=== PATIENT | female | born 1940 | race Caucasian/White ===

== ENCOUNTER → 2016-11-10 | Outpatient (CLI) | payer MEDICARE, MEDICAID ==
[~2016-11-10] MED LIST: ASPIRIN 325MG325 MG PO; BISOPROLOL 5MG T5 MG PO; CEFTIN500 MG PO; CLONIDINE HYDR0.1 MG PO; Docusate Sodiu100 MG PO; FERROUS SULFATE65 MG PO; LISINOPRIL2.5 MG NG; PLAVIX75 MG PO; PROAIR HFA0.09 MG/AC IH; VITAMIN C500 M4 PO; ZOCOR80 MG PO
--- NOTE | 2016-11-16 15:19 | RADIOLOGY REPORT PS360 ---
EXAM: CT LUNG LOW DOSE WO CONTRAST TECHNIQUE: The exam was performed on a GE Light Speed [address] scanner using 3.0 mGy CTDI. A low dose helical CT CHEST was performed on a multi-detector scanner The LDCT was performed in a facility that meets the criteria for the screening program. Data regarding this exam was submitted to ACR which is an approved registry. The order for this exam indicates that it came as a result of a lung cancer screening counseling shard decision-making visit that included all the elements required of such a visit including smoking cessation. The radiologist interpreting this exam meets the CMS criteria for the LDCT lung cancer screening program. The exam is reported using the Lung-RADS classification scale and reported to the ACR registry. NOTE: This study was performed for the specific purposes of lung cancer screening and is not an alternative to diagnostic chest CT. RADIATION DOSE: CTDI vol(CT dose Index-volume) = 111.9mGy DLP (Dose Length Product) = 2.94 mGy-cm COMPARISON: Previous CT chest screening 04/25/2016 HISTORY: Smoker 1-2 pack per day for 45 years = approaching 70 year pack hx Lung nodule follow-up prior April [address] . FINDINGS: No suspicious lung nodules no suspicious intrathoracic findings. COPD. Hyperexpansion. Indeterminate/Non-actionable Nodules(Category2): . Again the tiny 3 mm superior segment at posterior right lower lobe nodule is identified, it has not changed appreciably in seen. On axial image 36. Measures up to 3 mm size barely evident. Unchanged. . Given this is less than 4 mm size and stable Follow-up in one year adequate for this this feature be.. No additional new lung nodule or lung findings LUNG PARENCHYMA Emphysema: Mild centrilobular emphysematous changes again noted Airways disease: Upper normal thickness central airways.. Fibrosis: No significant interstitial fibrosis OTHER ANATOMIC REGIONS Lymph Nodes: No enlarged lymph nodes evident. Scattered small nodes are present in the mediastinum and zachariah Pleura: Unremarkable Cardiac: Unremarkable OTHER FINDINGS:.. The patient had a recent breast biopsy with bleeding at the biopsy site at the large hematoma at the medial left breast remains evident measured 3.5 cm. The small metallic MicroMark or from the biopsy procedure which revealed a cancer at the medial breast, is evident. Although it can be tolerated for localization this may be difficult. Understand patient is requested to a mastectomyI however if localization is requested CT back to be the better technique for such given theLarge hematoma rather than standard mammogram breast needle localization technique. ' IMPRESSION 1. Lung RADS Category: 2 Stable tiny 3 mm nodule at posterior right lower lobe superior segment. Follow-up one year adequate for this feature 2. Other findings:* Large 3.5 cm hematoma associated with the recent breast biopsy medial left breast evident The tiny metallic marker placed at biopsy site centrally within this region noted. If localization of this prior breast biopsy site requested, CT may be a more feasible option than mammography due to the large hematoma 3. COPD. Mild emphysematous changes. RECOMMENDATIONS: 12 monthd LDCT follow-up for the lung cancer screening follow-up
== END ==
LOC: RAD 12:38
DX: R91.1 Solitary pulmonary nodule (principal); Z87.891 Personal history of nicotine dependence; Z12.2 Encounter for screening for malignant neoplasm of respiratory organs
CPT/HCPCS: G0297

== ENCOUNTER → 2016-11-16 | Outpatient (CLI) | payer MEDICARE, MEDICAID ==
[~2016-11-16] MED LIST changes: +NORCO 325 MG-51 TAB PO
[2016-11-16 16:19] LABS: LYMPH # 2.1 K/mm3 (0.7-4.5); LYMPH % 27.5 % (10-50.0)
[2016-11-16 16:24] LABS: HEMOGLOBIN 14.6 g/dL (12.2-16.2)
[2016-11-16 18:50] LABS: BUN 14 mg/dL (7-18)
[2016-11-16 18:55] LABS: GFR (ESTIMATED) 61 ML/MIN (59-)
== END ==
LOC: RT 16:07 → LAB 16:07
PROVIDERS: Surgery
DX: C50.912 Malignant neoplasm of unspecified site of left female breast (principal); Z01.810 Encounter for preprocedural cardiovascular examination; Z01.811 Encounter for preprocedural respiratory examination; Z01.812 Encounter for preprocedural laboratory examination

== ENCOUNTER 2016-11-22 11:02 | Observation (INO) | payer MEDICARE, MEDICAID ==
[2016-11-22] VITALS (13 sets, daily range): BP systolic 109–148; BP diastolic 52–81
[~2016-11-22] VITALS: Ht 154.9 cm; Wt 69.9 kg
[~2016-11-22 11:02] MED LIST changes: -NORCO 325 MG-51 TAB PO
--- NOTE | 2016-11-22 15:39 | Operative Note ---
Surgeon/Diagnoses Surgeon/Detective Bureau Chief(s) Date of procedure: 11/22/16 Surgeon: MD Jak Ruiz Detective Bureau Chief(s): Lydia Kendrick Diagnoses Pre-op diagnosis: LEFT breast cancer Post-op diagnosis Same Procedure Procedure Procedure: LEFT mastectomy with LEFT axillary sentinel lymph node biopsy Indications: ADELSO BARLOW is a 76 year-old Female with a history of biopsy-proven LEFT breast cancer. After a long discussion with patient concerning the risks and benefits of all alternative interventions, she chose to proceed with mastectomy. She stated that she wanted her "entire breast removed no matter what". Findings: Target counts on sentinel node as notated in specimens. Once sentinel nodes removed, neoprobe evaluation revealed "background only". Procedure Description: Note: Prior to transportation to the operating room, the patient underwent isotope injection for sentinel lymph node biopsy in the radiology department. Please see separate procedure report for detail. After informed consent was obtained, the patient was taken to the operating room and placed in the supine position. General anesthesia was induced and her LEFT chest and axilla, and arm were prepped and draped in a sterile fashion. Methylene blue was injected just lateral to the tumor site (please note significant hematoma from initial biopsy remained). Neoprobe evaluation the axilla revealed a "hot spot". After infiltration of local anesthetic an incision was made. The deep subcutaneous tissue was dissected with electrocautery. Underlying old tissue was elevated and for separate "hot nodes" were excised. The initial sentinel node revealed a gamma count of 16,148. The second no revealed a count of 9613. The third no revealed a count of 2894. In the final "hot node" revealed a count of 1598. All those were passed off for pathologic evaluation. Neoprobe evaluation of the axilla revealed "background only". A small portion of non-sentinel axillary tissue was also passed off for pathologic evaluation. This mostly consisted of overlying "adipose pad". Electrocautery was utilized to achieve hemostasis and skin was closed with 4-0 Monocryl. Attention was then turned to the mastectomy. An elliptical incision was made overlying the breast to include the cancer, hematoma secondary to initial biopsy in radiology, and methylene blue injection site. The underlying tissue was carefully dissected with electrocautery as tissue flaps were elevated. The dissection was taken to the fascial margin. The entire breast was removed as a single specimen and passed off for pathologic evaluation after being marked for orientation. The superior margin was marked with short suture and the lateral margin was marked with long suture. Evaluation revealed a small area of nodular adipose tissue along the medial inferior margin. This area adiposity was resected as an additional medial margin. Electrocautery was utilized to achieve hemostasis. A number 10 Nicolas-Godinez drain was placed in the wound base and exited through a separate stab incision laterally. The drain was secured with nylon suture. The deep subcutaneous tissue was reapproximated with interrupted Vicryl and skin was closed with running 4-0 Monocryl in a subcuticular fashion. Steri-Strips were applied and the patient's anesthetic agents were reversed. Her laryngeal mask airway was removed prior to transfer to recovery. EBL (ml): 100 Anesthesia: General Complications: No immediate Specimens: LEFT breast Extended medial margin of LEFT breast Non-sentinel axillary tissue LEFT axillary sentinel lymph node number 1 (target count 16,148) LEFT axillary sentinel lymph node number 2 (target count 9,613) LEFT axillary sentinel lymph node number 3 (target count 2,894) LEFT axillary sentinel lymph node number 4 (target count 1,598) Disposition Disposition: Stable to recovery from where she will be transferred to the floor. at [phone]
--- NOTE | 2016-11-22 15:54 | Anesthesia Record ---
Anesthesia Record Part I Total IV fluids: 1000 EBL (ml): 100 Urine Output: 0 B/P: 156/79 % SaO2: 95 Pulse: 53 Resps: 16 Temp: 97 Patient is: Drowsy, Nasal O2, Stable Stable to PACU at: 1542 at 1550
--- NOTE | 2016-11-22 15:55 | Anesthesia Record ---
Anesthesia Record Part II Discharge time: 1612 Destination: Second Floor PACU nurse assessment review? Yes Patient is: Awake, Stable Anesthesia complications? No at 1556
[2016-11-23 03:48] VITALS: BP 124/65
--- NOTE | 2016-11-23 07:12 | PHARMACY CLINIC NOTE ---
Patient Demographics Patient Demographics Admission date: 11/22/16 Date: 11/23/16 Time: 0712 Allergies Coded Allergies: midazolam (From VERSED) (Mild, 11/22/16) [place] Pepper (MIGRAINES 11/22/16) Uncoded Allergies: METAL (11/21/16) HEIGHT- FT: 5 IN: 1.00 K.939 VTE General Information Disclaimer The following section includes nursing documentation that has been pulled in for pharmacy review. Patient's VTE score: 4 Patient's VTE Risk: LOW RISK Clinical trial participant? No VTE prophylaxis NQF [id number] VTE prophylaxis ordered? Yes Type of prophylaxis/treatment: Heparin (POST OP), ICD at 0712
[2016-11-23 07:17] LABS: LYMPH # 1.9 K/mm3 (0.7-4.5); LYMPH % 27.4 % (10-50.0)
[2016-11-23 07:33] LABS: HEMOGLOBIN 11.3 g/dL (12.2-16.2)
[2016-11-23 08:13] VITALS: BP 111/49
--- NOTE | 2016-11-23 08:34 | POST-OP PROGRESS NOTE ---
Post Op Subjective Data Patient is post-op day 1 Subjective data: Feels "fine". Post op objective data Vitals,I&O,and Labs: Vital signs, intake and output,and available lab data for the last 24 hours is as noted below. Vital Signs Date Time Temp Pulse Resp B/P Pulse O2 O2 Flow FiO2 Ox Delivery Rate 11/23 0813 97.8 50 18 111/49 93 OXYGEN 11/23 0601 92 ROOM AIR 11/23 0348 2 11/23 0348 98.3 46 18 124/65 98 OXYGEN 2 11/23 0259 20 11/23 0256 2 11/23 0136 2 11/23 0055 2 11/23 0004 2 11/22 2330 98.4 47 18 109/55 97 2 11/22 2310 2 11/22 2230 98.2 47 18 123/52 93 2 11/22 2141 20 11/22 2135 2 11/22 2135 2 11/22 2130 97.9 47 20 120/65 98 2 11/22 2029 98.2 48 20 126/72 95 2 11/22 2029 97.5 51 20 135/74 96 2 11/22 1944 2 11/22 1930 98.0 55 20 135/73 98 2 11/22 1900 97.9 52 18 129/64 99 2 11/22 1844 2 11/22 1839 55 18 117/57 94 11/22 1830 97.7 56 18 148/71 98 2 11/22 1813 97.0 11/22 1800 96.2 52 16 137/81 99 2 11/22 1730 96.1 52 16 143/76 96 2 11/22 1715 96.1 47 16 145/72 98 2 11/22 1706 98.1 50 20 131/60 98 OXYGEN 11/22 1700 2 11/22 1700 96.2 48 16 126/81 99 2 11/22 1645 96.1 50 16 131/60 98 2 11/22 1632 97.5 51 16 135/74 96 ROOM AIR 11/22 1622 97.4 52 16 139/64 94 OXYGEN 11/22 1612 97.4 47 16 133/71 95 OXYGEN 11/22 1602 97.2 59 16 138/75 97 OXYGEN 11/22 1554 97.0 53 16 156/79 95 11/22 1552 97.2 56 13 126/92 94 OXYGEN 11/22 1542 97.0 53 16 156/79 95 OXYGEN 11/22 1148 97.8 55 18 117/57 05 1141 97.8 55 18 117/57 94 11/22 1500 11/22 2300 11/23 0700 Intake Total 880 1406 Output Total 50 500 Balance 830 906 Intake, IV 145 926 Intake, Oral 735 480 Intake, Tube 0 Irrigant Output, 0 Emesis Output, 0 Estimated Blood Loss Output, Other 50 Output, Urine 0 500 Patient 69.939 kg Weight Laboratory Tests Test Result Date Time Hematology WBC (K/MM3) 6.8 11/23 06 RBC (M/mm3) 3.47 11/23 06 Hgb (g/dL) 11.3 11/23 06 Hct (%) 34.8 11/24 619 MCV (fl) 100.5 11/23 06 RDW (%) 14.9 11/23 06 Plt Count (K/mm3) 229 11/23 06 MPV (fl) 6.6 11/24 619 Gran % (%) 63.5 11/24 619 Gran # (K/mm3) 4.3 11/24 619 Lymphocytes % (%) 27.4 11/24 619 Monocytes % (%) 7.2 11/23 06 Eosinophils % (%) 1.5 11/24 619 Basophils % (%) 0.5 11/23 06 Lymphocytes # (K/mm3) 1.9 11/24 619 Monocytes # (K/mm3) 0.5 11/24 619 Eosinophils # (K/mm3) 0.1 11/24 619 Basophils # (K/MM3) 0.0 11/23 06 PUBS MCHC (g/dl) 32.2 11/23 06 Immunology MCH (pg) 32.4 11/23 06 Physical Exam VS/I&O Vital Signs Date Time Temp Pulse Resp B/P Pulse O2 O2 Flow FiO2 Ox Delivery Rate 11/23 0813 97.8 50 18 111/49 93 OXYGEN 11/23 0601 92 ROOM AIR 11/23 0348 2 11/23 0348 98.3 46 18 124/65 98 OXYGEN 2 11/23 0259 20 11/23 0256 2 11/23 0136 2 11/23 0055 2 11/23 0004 2 11/22 2330 98.4 47 18 109/55 97 2 11/22 2310 2 11/22 2230 98.2 47 18 123/52 93 2 11/221 20 11/22 2134 2 11/22 2134 2 11/22 2129 97.9 47 20 120/65 98 2 11/22 2029 98.2 48 20 126/72 95 2 11/22 2029 97.5 51 20 135/74 96 2 11/22 1944 2 11/22 1930 98.0 55 20 135/73 98 2 11/22 1900 97.9 52 18 129/64 99 2 11/22 1844 2 11/22 1839 55 18 117/57 94 11/22 1830 97.7 56 18 148/71 98 2 11/22 1813 97.0 11/22 1800 96.2 52 16 137/81 99 2 11/22 1730 96.1 52 16 143/76 96 2 11/22 1715 96.1 47 16 145/72 98 2 11/22 1706 98.1 50 20 131/60 98 OXYGEN 11/22 1700 2 11/22 1700 96.2 48 16 126/81 99 2 11/22 1645 96.1 50 16 131/60 98 2 11/22 1632 97.5 51 16 135/74 96 ROOM AIR 11/22 1622 97.4 52 16 139/64 94 OXYGEN 11/22 1612 97.4 47 16 133/71 95 OXYGEN 11/22 1602 97.2 59 16 138/75 97 OXYGEN 11/22 1554 97.0 53 16 156/79 95 11/22 1552 97.2 56 13 126/92 94 OXYGEN 11/22 1542 97.0 53 16 156/79 95 OXYGEN 11/22 1148 97.8 55 18 117/57 11/22 1141 97.8 55 18 117/57 94 I&O 11/23 0700 Intake Total 2286 Output Total 550 Balance 1736 Intake, IV 1071 Intake, Oral 1215 Intake, Tube 0 Irrigant Output, 0 Emesis Output, 0 Estimated Blood Loss Output, Other 50 Output, Urine 500 Patient 69.939 kg Weight Exam General appearance no acute distress Respiratory no distress Cardiovascular regular rate and rhythm Skin abcess location ((see below)) Findings/Data Dressings are clean and dry. No erythema. No hematoma. Serosanguineous drainage and Nicolas-Godinez drain. Post op patient plan Diagnoses: LEFT breast cancer-overall, doing well status post mastectomy and LEFT axillary sentinel biopsy Plan: Ambulate, d/c home This inpt stay is expected to cross 2 MNs from start of care No at 0834
[2016-11-23] MEDS ORDERED: NORCO 325 MG-51 TAB PO (08:38)
--- NOTE | 2016-11-23 08:39 | Discharge Summary Report ---
General Admit date: 11/22/16 Discharge date: 11/23/16 Admission Dx: LEFT breast cancer Discharge Dx: Same Hospital course: The patient was admitted for observation after undergoing LEFT mastectomy with axillary sentinel node biopsy. She convalesced well and was deemed appropriate for discharge on the following morning. She had no sign of postoperative hemorrhage or infection. Condition at discharge: stable Problem List Medical Problems Chest pain (Chronic) Dysuria (Chronic) Essential hypertension (Chronic) Generalized weakness Heart disease (Chronic) Hyperlipidemia (Chronic) Hypertension possible pneumonia (Chronic) Tobacco dependence syndrome (Chronic) Allergies Coded Allergies: midazolam (From VERSED) (Mild, 11/22/16) [place] Pepper (MIGRAINES 11/22/16) Uncoded Allergies: METAL (11/21/16) Med Rec DC summary Medications Active Scripts Clonidine Hcl (Clonidine) 0.1 MG PO BIDP PRN high blood pressure #30 TAB Prov: 04/14/16 Albuterol Sulfate (Proair Hfa) 1 PUFF IH Q6HP #1 INH Prov: 04/16/12 Reported Medications FERROUS SULFATE (Ferrous Sulfate) 650 MG PO DAILY ASPIRIN (Aspirin 325MG) 325 MG PO DAILY Docusate Sodium (Docusate Sodium 100MG Capsule) 100 MG PO BID Ascorbic Acid (Vitamin C) 500 MG PO DAILY Txs and Procedures Treatments and Procedures: LEFT mastectomy with sentinel lymph node biopsy Labs: Laboratory Tests 11/23/16 0620: WBC 6.8, RBC 3.47 L, Hgb 11.3 L, Hct 34.8 L, MCV 100.5 H, RDW 14.9, Plt Count 229, MPV 6.6 L, Gran % 63.5, Gran # 4.3, Lymphocytes % 27.4, Monocytes % 7.2, Eosinophils % 1.5, Basophils % 0.5, Lymphocytes # 1.9, Monocytes # 0.5, Eosinophils # 0.1, Basophils # 0.0, PUBS MCHC 32.2, MCH 32.4 H at 0839
[2016-11-23 10:14] VITALS: BP 111/49
--- OUTSIDE RECORDS SUMMARY | 2016-11-29 02:19 | External Medical Summary Rpt ---
Author Author , Organization [employer] Address Unknown Phone Unavailable Care Team Providers Care Auto Suspension And Steering Mechanic Name Role Phone JAMAL BERRY Unavailable Unavailable GUNTER, GUNTER Unavailable Unavailable WILL, WILL Unavailable Unavailable [facility] Unavailable Unavailable [facility], [facility] AMARA, AMARA Unavailable Unavailable [facility] Un[facility], [facility] Unavailable Unavailable [facility]PITAL P, [facility], [facility] Unavailable Unavailable [facility], [facility] SCIFRES, SCIFRES Unavailable Unavailable Purpose Continuity of Care Document - 09-01-2016 through 2016 Problems Code Diagnosis DOS Provider Status [id number] MALIGNANT 10-31-2016 [facility] P LEFT FEMALE BREAST Z170 ESTROGEN 10-31-2016 [facility] P STATUS F69993 DERMATOCHAL 10-11-2016 [facility] RIGHT UPPER INSTITUTE EYELID Q30653 DERMATOCHAL 10-11-2016 [place] LEFT UPPER INSTITUTE EYELID Q06275 COMBINED 10-11-2016 [place] [facility] AGE-RELATED INSTITUTE CATARACT RIGHT EYE X95769 COMBINED 10-11-2016 [place] [facility] A[facility]-RELATED INSTITUTE CATARACT BILATERAL H538 OTHER 10-11-2016 [facility] DISTURBANCE [facility]STITUTE S R58 HEMORRHAGE 10-10-2016 [facility] ELSEWHERE INC CLASSIFIED Z5181 ENCOUNTER 10-10-2016 [facility] THERAPEUTIC INC DRUG LEVEL MONITORING Z7982 CHCF 10-10-2016 [facility] CURRENT USE [facility] OF ASPIRIN INC D4862 NEOPLASM OF 10-07-2016 [facility] BEHAVIOR OF INC LEFT BREAST N63 UNSPECIFIED 10-07-2016 [facility] IN [facility]ICAL BREAST IMAGING ASS R928 OTH ABNORM 09-22-2016 [facility] & [facility] INCONCLUSIV IMAGING ASS E FIND ON DX IMAG BREAST Z1231 ENCOUNTER 09-09-2016 [place] SCREENING MEDICAL MAMMO MALIG IMAGING ASS NEOPLASM BREAST H2513 AGE-RELATED 09-01-2016 [facility] CATARACT CENTER BILATERAL D64.9 ANEMIA, UNSPECIFIED N64.9 DISORDER OF BREAST, UNSPECIFIED R58 HEMORRHAGE, NOT ELSEWHERE CLASSIFIED R92.8 OTH ABN AND INCONCLUSIV E FINDINGS ON DX IMAGING OF BREAST Z79.01 [facility] (CURRENT) USE OF ANTICOAGULA NTS Procedures Procedure DOS Code Location Performer Comment OPH BMTRY [address] [facility] US 7 EYE ECHOGRAPY INSTITUTE A-SCAN IO LENS PWR JERMAINE THROMBOPL 37661 [facility] ASTIN 7 [facility] TIME INC INC PARTIAL PLASMA/WH OLE BLOOD BLOOD 43516 [facility] COUNT 7 [facility] COMPLETE INC INC AUTO&AUTO DIFRNTL WBC COLLECTIO 36080 [facility] N VENOUS 7 COUNTS INCLUDE 234 [facility] AT [facility] BLOOD INC INC VENIPUNCT URE PROTHROMB 35360 [facility] IN TIME 7 [facility] [place] [address] [facility] GUIDANCE 7 [facility] NEEDLE INC INC PLACEMENT IMG S&[place] [address] [facility] SURG 7 COUNTS INCLUDE 234 [facility] AT [facility] PATHOLOGY INC INC GROSS&DIVYA ROSCOPIC EXAM M/PHMTRC 51090 [facility] KATHRIN 7 [facility]P TUMOR INC INC IMHCHEM EA ANTIBODY MANUAL US BREAST 26401 [facility] UNI REAL 7 [facility] TIME INC INC WITH IMAGE COMPLETE BX BREAST 47175 [place] WILL W/DEVICE 7 MEDICAL 1ST IMAGING LESION ASS ULTRASOUN D GUID PROBE/NEE C2618 [facility] DLE 7 [facility]OSP CRYOABLAT INC INC ION US BREAST 35839 [facility] UNI REAL 7 [facility] TIME INC INC WITH IMAGE COMPLETE US BREAST 34597 [place] GUNTER UNI REAL 7 MEDICAL TIME IMAGING WITH ASS IMAGE LIMITED SCREENING G0202 [facility] 7 [facility] HOSP MAMMOGRAP INC INC HY PELON INCL CAD WHEN PERFORMD DETERMINA 66032 [facility] [place] 7 VISION REFRACTIV CENTER E [facility] OPH [address] [place] [address] VISION XM&EVAL CENTER COMPRHNSV ESTAB PT Encounters Encounter Start End Date Code Location Performer Type Date OFFICE 32450 [facility] OUTPATIEN 7 7 [facility] 20 [facility] MINUTES P OFFICE 17038 [facility] OUTPATIEN 7 7 EYE T [facility] 30 [place] MINUTES [facility] - 7 7 MEM H[facility] OUTPATIEN [facility] - 7 7 [facility] [place] [place] [facility] - 7 7 [facility] [place] [place] [facility] OUTPATIEN [facility] ARI[facility] - 7 7 MEM [facility] OUTPATIEN [facility]
--- OUTSIDE RECORDS SUMMARY | 2016-11-29 02:19 | External Medical Summary Rpt ---
Author Author , Organization [employer] Address Unknown Phone Unavailable Care Team Providers Care Electric Cell Tender Name Role Phone BEINEKE, BENASIRKE Unavailable Unavailable JAMAL, JAMAL Unavailable Unavailable GUNTER, GUNTER Unavailable Unavailable WILL, WILL Unavailable Unavailable [facility] Unavailable Unavailable [facility], [facility] AMARA, AMARA Unavailable Unavailable [facility] Unavailable Un[facility] INC, [facility] Unavailable Unavailable HOSPITAL P, [facility] Unavailable Unavailable [facility], [facility] Unavailable Unavailable [facility], [facility] SCIFRES, SCIFRES Unavailable Unavailable Purpose Continuity of Care Document - 09-01-2016 through 2016 Problems Code Diagnosis DOS Provider Status [id number] MALIGNANT 10-31-2016 [place] NEOPLASM [facility] P LEFT FEMALE BREAST Z170 ESTROGEN 10-31-2016 [facility] P STATUS I73786 DERMATOCHAL 10-11-2016 [facility] RIGHT UPPER INSTITUTE EYELID C59964 DERMATOCHAL 10-11-2016 [facility] LEFT UPPER INSTITUTE EYELID U62885 COMBINED 10-11-2016 [place] FORMS OF EYE AGE-RELATED INSTITUTE CATARACT RIGHT EYE G21769 COMBINED 10-11-2016 [place] [facility] EYE AGE-RELATED INSTITUTE CATARACT BILATERAL H538 OTHER 10-11-2016 [facility] DISTUR[facility]ANCE [facility] S R58 HEMORRHAGE 10-10-2016 [facility] ELSEWHERE INC CLASSIFIED Z5181 ENCOUNTER 10-10-2016 [facility] THERAPEUTIC INC DRUG LEVEL MONITORING Z7982 RESIDENTIAL 10-10-2016 [facility] CURRENT USE [facility] INC D4862 NEOPLASM OF 10-07-2016 [facility] BEHAVIOR OF INC LEFT BREAST N63 UNSPECIFIED 10-07-2016 [facility] IN MEDICAL BREAST IMAGING ASS R928 OTH ABNORM 09-22-2016 [facility] & MEDICAL INCONCLUSIV IMAGING ASS E FIND ON DX IMAG BREAST Z1231 ENCOUNTER 09-09-2016 [facility] SCREENING MEDICAL MAMMO MALIG IMAGING ASS NEOPLASM BREAST H2513 AGE-RELATED 09-01-2016 [place] NUC[facility]AR V[facility] CATARACT CENTER BILATERAL Procedures Procedure DOS Code Location Performer Comment OPH BMTRY 63359 [facility] US 7 EYE ECHOGRAPY INSTITUTE A-SCAN IO LENS PWR JERMAINE THROMBOPL 08287 [facility] ASTIN 7 [facility] H[facility] TIME INC INC PARTIAL PLASMA/WH OLE BLOOD COLLECTIO 39268 [facility] N VENOUS 7 MEM HOSP [facility] BLOOD INC INC VENIPUNCT URE BLOOD 58201 [facility] COUNT 7 MEM HOS[facility] COMPLETE INC INC AUTO&AUTO DIFRNTL WBC PROTHROMB 14711 [facility] IN TIME 7 MEM HOS[facility] INC INC 38937 [facility] GUIDANCE 7 [facility] HOS[facility] NEEDLE INC INC PLACEMENT IMG S&I US BREAST 70361 [facility] UNI REAL 7 [facility] TIME [place] [address] [facility] SURG 7 [facility] HOSP PATHOLOGY INC INC GROSS&DIVYA ROSCOPIC EXAM M/PHMTRC 82429 [facility] KATHRIN 7 [facility] TUMOR INC INC IMHCHEM EA ANTIBODY MANUAL PROBE/NEE C2618 [facility] DLE 7 [facility] HOSP CRYOABLAT INC INC ION BX BREAST 64535 [facility] WILL W/DEVICE 7 MEDICAL 1ST IMAGING LESION ASS ULTRASOUN D GUID US BREAST 47789 [facility] GUNTER UNI REAL 7 MEDICAL TIME IMAGING WITH ASS IMAGE LIMITED US BREAST 23471 [facility] UNI REAL 7 [facility] TIME INC INC WITH IMAGE COMPLETE SCREENING G0202 [facility] VIKTORINE 7 MEDICAL MAMMOGRAP IMAGING HY PELON ASS INCL CAD WHEN PERFORMD DETERMINA 08167 [facility] 7 [facility] RE[facility]CTIV CENTER E STATE OPH [address] [facility] 7 VISION XM&EVAL CENTER COMPRHNSV ESTAB PT 1/> Encounters Encounter Start End Date Code Location Performer Type Date OFFICE 71452 [facility] OUTPATIEN 7 7 [facility] 20 [facility] MINUTES P OFFICE 97623 [facility] OUTPATIEN 7 7 [facility] - 7 7 [facility] - 7 7 [facility] - 7 7 [facility]IEN [facility] - 7 7 [facility]
--- OUTSIDE RECORDS SUMMARY | 2016-11-29 02:19 | External Medical Summary Rpt ---
Author Author , Organization [employer] Address Unknown Phone Unavailable Care Team Providers Care Lace Roller Operator Name Role Phone BEINEKE, BENASIRKE Unavailable Unavailable JAMAL, JAMAL Unavailable Unavailable GUNTER, GUNTER Unavailable Unavailable WILL, WILL Unavailable Unavailable [facility] Unavailable Unavailable [facility], [facility] AMARA, AMARA Unavailable Unavailable [facility] Un[facility] Un[facility], [facility] Unavailable Unavailable [facility], [facility] Un[facility], [facility] Unavailable Unavailable [facility], [facility] SCIFRES, SCIFRES Unavailable Unavailable Purpose Continuity of Care Document - 09-01-2016 through 2016 Problems Code Diagnosis DOS Provider Status [id number] MALIGNANT 10-31-2016 [facility] NEOPLASM [facility] P LEFT FEMALE BREAST Z170 ESTROGEN 10-31-2016 [facility] P STATUS [id number] DERMATOCHAL 10-11-2016 [facility] EYELID P23812 DERMATOCHAL 10-11-2016 [facility]ER IN[facility] EYELID F90890 COMBINED 10-11-2016 [facility] A[facility]-RELATED INSTITUTE CATARACT RIGHT EYE [id number] COMBINED 10-11-2016 [facility] CATARACT BILATERAL H538 OTHER 10-11-2016 [facility] S R58 HEMORRHAGE 10-10-2016 [facility] ELSEWHERE INC CLASSIFIED Z5181 ENCOUNTER 10-10-2016 [facility] THERAPEUTIC INC DRUG LEVEL MONITORING Z7982 FDC 10-10-2016 [facility] INC D4862 NEOPLASM OF 10-07-2016 [facility] BEHAVIOR OF INC LEFT BREAST N63 UNSPECIFIED 10-07-2016 [facility] IN [facility]ICAL BREAST IMAGING ASS R928 OTH ABNORM 09-22-2016 [facility] INCONCLUSIV IMAGING ASS E FIND ON DX IMAG BREAST Z1231 ENCOUNTER 09-09-2016 [facility] SCREENING [facility]ICAL MAMMO MALIG IMAGING ASS NEOPLASM BREAST H2513 AGE-RELATED 09-01-2016 [facility] C[facility] BILATERAL Procedures Procedure DOS Code Location Performer Comment OPH BMTRY 36498 [facility] US 7 [facility] E[facility]GR[facility]Y INSTITUTE A-SCAN IO LENS PWR JERMAINE THROMBOPL 99937 [facility] ASTIN 7 [facility] TIME INC INC PARTIAL PLASMA/WH OLE BLOOD COLLECTIO 52944 [facility] N VENOUS 7 [facility] BLOOD INC INC VENIPUNCT URE BLOOD 40820 [facility] COUNT 7 [facility] COMPLETE INC INC AUTO&AUTO DIFRNTL WBC PROTHROMB 15821 [facility] IN TIME 7 [facility] INC INC 66187 [facility] GUIDANCE 7 [facility] NEEDLE INC INC PLACEMENT IMG S&I US BREAST 86819 [facility] UNI REAL 7 [facility] [place] [address] [facility] SURG 7 [facility] PATHOLOGY INC INC GROSS&DIVYA ROSCOPIC EXAM M/PHMTRC 44945 [facility] KATHRIN 7 [facility] TUMOR INC INC IMHCHEM EA ANTIBODY MANUAL PROBE/NEE C2618 [facility] DLE 7 [facility] CRYOABLAT INC INC ION BX BREAST 59436 [facility] WILL W/DEVICE 7 MEDICAL 1ST IMAGING LESION ASS ULTRASOUN D GUID US BREAST 42772 [facility] GUNTER UNI REAL 7 MEDICAL TIME IMAGING WITH ASS IMAGE LIMITED US BREAST 07350 [facility] UNI REAL 7 [facility] TIME INC INC WITH IMAGE COMPLETE SCREENING G0202 [facility] VIKTORINE 7 MEDICAL MAMMOGRAP IMAGING HY PELON ASS INCL CAD WHEN PERFORMD DETERMINA 85402 [facility] 7 [facility] REFRACTIV CENTER E STATE OPH 06688 [facility] 7 VISION XM&EVAL CENTER COMPRHNSV ESTAB PT 1/> Encounters Encounter Start End Date Code Location Performer Type Date OFFICE 03645 [facility] OUTPATIEN 7 7 [facility] 20 [facility] MINUTES P OFFICE 09407 [facility] OUTPATIEN 7 7 [facility] - 7 7 [facility] OUTPATIEN [facility] - 7 7 [facility]PATIEN [facility] - 7 7 [facility] OUTPATIEN [facility] - 7 7 [facility] OUTPATIEN [facility]
--- OUTSIDE RECORDS SUMMARY | 2016-11-29 02:19 | External Medical Summary Rpt ---
Author Author , Organization [employer] Address Unknown Phone Unavailable Care Team Providers Care Pipe Blanks Cut Off Saw Operator Name Role Phone JAMAL BERRY Unavailable Unavailable GUNTER, GUNTER Unavailable Unavailable WILL, WILL Unavailable Unavailable [facility] Unavailable Unavailable [facility]ENTER, [facility] AMARA, AMARA Unavailable Unavailable [facility] Unavailable Unavailable INC, [facility] Unavailable Unavailable HOSPITAL P, [facility] Unavailable Unavailable [facility], [facility] Unavailable Unavailable [facility], [facility] SCIFRES, SCIFRES Unavailable Unavailable Purpose Continuity of Care Document - 09-01-2016 through 2016 Problems Code Diagnosis DOS Provider Status [id number] MALIGNANT 10-31-2016 [facility] P LEFT FEMALE BREAST Z170 ESTROGEN 10-31-2016 [facility] P STATUS S43184 DERMATOCHAL 10-11-2016 [facility] RIGHT [facility]ER [facility] EYELID Q68785 DERMATOCHAL 10-11-2016 [facility] LEFT UPPER INSTITUTE EYELID K48129 COMBINED 10-11-2016 [facility]-RELATED INSTITUTE CATARACT RIGHT EYE M19179 COMBINED 10-11-2016 [facility] CATARACT BILATERAL H538 OTHER 10-11-2016 [facility] S R58 HEMORRHAGE 10-10-2016 [facility] ELSEWHERE INC CLASSIFIED Z5181 ENCOUNTER 10-10-2016 [facility] THERAPEUTIC INC DRUG LEVEL MONITORING Z7982 GROUP HOME 10-10-2016 [facility] D4862 NEOPLASM OF 10-07-2016 [facility] BEHAVIOR OF INC LEFT BREAST N63 UNSPECIFIED 10-07-2016 [place] [facility] MEDICAL BREAST IMAGING ASS R928 OTH ABNORM 09-22-2016 [place] INCONCLUSIV IMAGING ASS E FIND ON DX IMAG BREAST Z1231 ENCOUNTER 09-09-2016 [facility] SCREENING MEDICAL MAMMO MALIG IMAGING ASS NEOPLASM BREAST H2513 AGE-RELATED 09-01-2016 [facility] CAT[facility]ACT CENTER BILATERAL D64.9 ANEMIA, UNSPECIFIED N64.9 DISORDER OF BREAST, UNSPECIFIED R58 HEMORRHAGE, NOT ELSEWHERE CLASSIFIED R92.8 OTH ABN AND INCONCLUSIV E FINDINGS ON DX IMAGING OF BREAST Z79.01 GROUP HOME (CURRENT) USE OF ANTICOAGULA NTS Procedures Procedure DOS Code Location Performer Comment OPH BMTRY 79069 [facility] US 7 EYE ECHOGRAPY INSTITUTE A-SCAN IO LENS PWR JERMAINE THROMBOPL 63226 [facility] ASTIN 7 [facility] TIME INC INC PARTIAL PLASMA/WH OLE BLOOD BLOOD 18783 [facility] COUNT 7 [facility] COMPLETE INC INC AUTO&AUTO DIFRNTL WBC COLLECTIO 33807 [facility] N VENOUS 7 [facility] BLOOD INC INC VENIPUNCT URE PROTHROMB 92484 [facility] IN TIME 7 [facility] [place] [address] [facility] GUIDANCE 7 [facility] NEEDLE INC [place] PLACEMENT IMG S&[place] [address] [facility] SURG 7 [facility] PATHOLOGY INC INC GROSS&DIVYA ROSCOPIC EXAM M/PHMTRC 65235 [facility] KATHRIN 7 [facility] TUMOR INC INC IMHCHEM EA ANTIBODY MANUAL US BREAST 42030 [facility] UNI REAL 7 [facility] TIME INC INC WITH IMAGE COMPLETE BX BREAST 66753 [place] WILL W/DEVICE 7 MEDICAL 1ST IMAGING LESION ASS ULTRASOUN D GUID PROBE/NEE C2618 [facility] DLE 7 [facility] CRYOABLAT INC INC ION US BREAST 09643 [facility] UNI REAL 7 [facility] TIME INC INC WITH IMAGE COMPLETE US BREAST 48997 [place] [facility] UNI REAL 7 MEDICAL TIME IMAGING WITH ASS IMAGE LIMITED SCREENING G0202 [facility] 7 [facility] MAMMOGRAP INC INC HY PELON INCL CAD WHEN PERFORMD DETERMINA 79675 [facility] 7 [facility] E [facility] O[facility] [address] [place] [address] VISION XM&EVAL CENTER COMPRHNSV ESTAB PT Encounters Encounter Start End Date Code Location Performer Type Date OFFICE 79639 [facility] OUTPATIEN 7 7 [facility] 20 [facility] MINUTES P OFFICE 35590 [facility] OUTPATI[facility] 7 7 [facility] [place] MINUTES [facility] - 7 7 MEM [facility] OUTPATIEN [facility] - 7 7 [facility] - 7 7 [facility] OUTPATIEN [facility] - 7 7 [facility]IEN [facility]
--- OUTSIDE RECORDS SUMMARY | 2016-11-29 02:20 | External Medical Summary Rpt ---
Demographics Preferred Language Romansh Marital Status Unknown Anabaptist Affiliation Unknown Race Unknown Ethnic Group Unknown Author Author , Organization [employer] Address Unknown Phone Unavailable Purpose Continuity of Care Document - through 2016 Immunization No patient found.
--- OUTSIDE RECORDS SUMMARY | 2016-11-29 02:20 | External Medical Summary Rpt ---
Author Author [employer], DE[employer]AH [employer] Organization [employer] Address Unknown Phone Unavailable Results CBC W Auto Differential panel in Blood Observa Value Referen Units Interpr Notes Date tion ce etation Range Basophils 0 - 0.2 K/MM3 Normal No November 23 informati 2016 6:20 [#/volume on in AM ] in source Blood by data Automated count Basophils 0.1 - 2.0 % Normal No November 23 informati 2016 6:20 leukocyte on in AM s in source Blood by data Automated count Eosinophi 0.0 - 0.4 K/mm3 Normal No November 23 ls informati 2016 6:20 [#/volume on in AM ] in source Blood by data Automated count Eosinophi 0.1 - % Normal No November 23 ls/100 12.0 informati 2016 6:20 leukocyte on in AM s in source Blood by data Automated count Granulocy 1.8 - 7.8 K/mm3 Normal No November 23 keira informati 2016 6:20 [#/volume on in AM ] in source Blood by data Automated count Granulocy 37.0 - % Normal No November 23 keira/100 80.0 informati 2017 6:20 leukocyte on in AM s in source Blood by data Automated count Hematocri 37.0 - % Low No November 23 t [Volume 47.0 informati 2016 6:20 on in AM Fraction] source of Blood data Hemoglobi 12.2 - g/dL Low No November 23 n 16.2 informati 2017 6:20 [Mass/vol on in AM ume] in source Blood data Lymphocyt 0.7 - 4.5 K/mm3 Normal No November 23 es informati 2016 6:20 [#/volume on in AM ] in source Unspecifi data ed specimen by Automated count Lymphocyt 10 - 50.0 % Normal No November 23 es informati 2016 6:20 [#/volume on in AM ] in source Unspecifi data ed specimen by Automated count Erythrocy 27 - 31.2 pg High No November 23 te mean informati 2017 6:20 corpuscul on in AM ar source hemoglobi data n [Entitic mass] Erythrocy 31.8 - g/dl Normal No November 23 te mean 35.4 informati 2016 6:20 corpuscul on in AM ar source hemoglobi data n concentra tion [Mass/vol ume] by Automated count Erythrocy 82.2 - fl High No November 23 te mean 97.8 informati 2016 6:20 corpuscul on in AM ar volume source [Entitic data volume] by Automated count Monocytes 0.1 - 1.0 K/mm3 Normal No November 23 informati 2016 6:20 [#/volume on in AM ] in source Blood by data Automated count Monocytes 1.7 - 9.3 % Normal No November 23 /100 informati 2016 6:20 leukocyte on in AM s in source Blood by data Automated count Platelet 7.4 - fl Low No November 23 mean 10.4 informati 2016 6:20 volume on in AM [Entitic source volume] data in Blood by Automated count Platelets 142 - 424 K/mm3 Normal No November 23 informati 2016 6:20 [#/volume on in AM ] in source Blood data Erythrocy 4.2 - 5.4 M/mm3 Low No November 23 keira informati 2016 6:20 [#/volume on in AM ] in source Amniotic data fluid Erythrocy 11.5 - % Normal No November 23 te 17.5 informati 2016 6:20 distribut on in AM ion width source [Entitic data volume] by Automated count Leukocyte 4.8 - K/MM3 Normal No November 23 s 10.8 informati 2016 6:20 [#/volume on in AM ] in source Blood data Comprehensive metabolic 2000 panel in Serum or Plasma Observa Value Referen Units Interpr Notes Date tion ce etation Range Albumin/G 1.1 - 1.8 No Normal No November 16 lobulin informati informati 2016 4:07 [Mass on in on in PM ratio] in source source Serum or data data Plasma Albumin 3.4 - 5.0 gm/dL Normal No November 16 [Mass/vol informati 2016 4:07 ume] in on in PM Serum or source Plasma data Alkaline 46 - 116 U/L Normal No November 16 phosphata informati 2016 4:07 se on in PM [Enzymati source c data activity/ volume] in Serum or Plasma Bilirubin 0.2 - 1.0 mg/dL Normal No November 16 .total informati 2016 4:07 [Mass/vol on in PM ume] in source Serum or data Plasma Urea 7 - 18 mg/dL Normal No November 16 nitrogen informati 2016 4:07 [Mass/vol on in PM ume] in source Serum or data Plasma Calcium 8.5 - mg/dL Normal No November 16 [Mass/vol 10.1 informati 2016 4:07 ume] in on in PM Serum or source Plasma data Chloride 98 - 107 mmoL/L Normal No November 16 [Moles/vo informati 2016 4:07 lume] in on in PM Serum or source Plasma data Carbon 21.0 - mmoL/L Normal No November 16 dioxide, 32.0 informati 2016 4:07 total on in PM [Moles/vo source lume] in data Serum or Plasma Creatinin 0.55 - mg/dL Normal No November 16 e 1.02 informati 2016 4:07 [Mass/vol on in PM ume] in source Serum or data Plasma Estimated 59- ML/MIN No REFERENCE November 16 informati RANGE: 2017 4:07 glomerula on in >60 PM r source ML/MIN/1. filtratio data 73 SQUARE n rate METERSIf (GF this patient is -A merican, then multiply theresult by 1.210. Globulin 1.3 - 3.2 gm/dL High No November 16 [Mass/vol informati 2016 4:07 ume] in on in PM Serum source data Glucose 74 - 106 mg/dL Normal No November 16 [Mass/vol informati 2016 4:07 ume] in on in PM Serum or source Plasma data Potassium 3.5 - 5.1 mmoL/L Normal No November 16 informati 2016 4:07 [Moles/vo on in PM lume] in source Serum or data Plasma Sodium 136 - 145 mmoL/L Normal No November 16 [Moles/vo informati 2016 4:07 lume] in on in PM Serum or source Plasma data Aspartate 15 - 37 U/L Low No November 16 informati 2016 4:07 aminotran on in PM sferase source [Enzymati data c activity/ volume] in Serum or Plasma Alanine 12 - 78 U/L Normal No November 16 aminotran informati 2016 4:07 sferase on in PM [Enzymati source c data activity/ volume] in Serum or Plasma Protein 6.4 - 8.2 gm/dL Normal No November 16 [Mass/vol informati 2016 4:07 ume] in on in PM Serum or source Plasma data CBC W Auto Differential panel in Blood Observa Value Referen Units Interpr Notes Date tion ce etation Range Basophils 0 - 0.2 K/MM3 Normal No November 16 inform2016 4:07 [#/volume on in PM ] in source Blood by data Automated count Basophils 0.1 - 2.0 % Normal No November 16 informati 2016 4:07 leukocyte on in PM s in source Blood by data Automated count Eosinophi 0.0 - 0.4 K/mm3 Normal No November 16 ls informati 2016 4:07 [#/volume on in PM ] in source Blood by data Automated count Eosinophi 0.1 - % Normal No November 16 ls/100 12.0 informati 2016 4:07 leukocyte on in PM s in source Blood by data Automated count Granulocy 1.8 - 7.8 K/mm3 Normal No November 16 keira informati 2016 4:07 [#/volume on in PM ] in source Blood by data Automated count Granulocy 37.0 - % Normal No November 16 keira/100 80.0 informati 2016 4:07 leukocyte on in PM s in source Blood by data Automated count Hematocri 37.0 - % Normal No November 16 t [Volume 47.0 informati 2016 4:07 on in PM Fraction] source of Blood data Hemoglobi 12.2 - g/dL No No November 16 n 16.2 informati informati 2016 4:07 [Mass/vol on in on in PM ume] in source source Blood data data Lymphocyt 0.7 - 4.5 K/mm3 Normal No November 16 es informati 2016 4:07 [#/volume on in PM ] in source Unspecifi data ed specimen by Automated count Lymphocyt 10 - 50.0 % Normal No November 16 es informati 2016 4:07 [#/volume on in PM ] in source Unspecifi data ed specimen by Automated count Erythrocy 27 - 31.2 pg High No November 16 te mean informati 2016 4:07 corpuscul on in PM ar source hemoglobi data n [Entitic mass] Erythrocy 31.8 - g/dl Normal No November 16 te mean 35.4 informati 2016 4:07 corpuscul on in PM ar source hemoglobi data n concentra tion [Mass/vol ume] by Automated count Erythrocy 82.2 - fl High No November 16 te mean 97.8 informati 2016 4:07 corpuscul on in PM ar volume source [Entitic data volume] by Automated count Monocytes 0.1 - 1.0 K/mm3 Normal No November 16 informati 2016 4:07 [#/volume on in PM ] in source Blood by data Automated count Monocytes 1.7 - 9.3 % Normal No November 16 / informati 2016 4:07 leukocyte on in PM s in source Blood by data Automated count Platelet 7.4 - fl Low No November 16 mean 10.4 informati 2016 4:07 volume on in PM [Entitic source volume] data in Blood by Automated count Platelets 142 - 424 K/mm3 Normal No November 16 informati 2016 4:07 [#/volume on in PM ] in source Blood data Erythrocy 4.2 - 5.4 M/mm3 Normal No November 16 keira informati 2016 4:07 [#/volume on in PM ] in source Amniotic data fluid Erythrocy 11.5 - % Normal No November 16 te 17.5 informati 2016 4:07 distribut on in PM ion width source [Entitic data volume] by Automated count Leukocyte 4.8 - K/MM3 Normal No November 16 s 10.8 informati 2016 4:07 [#/volume on in PM ] in source Blood data
--- OUTSIDE RECORDS SUMMARY | 2016-11-29 02:20 | External Medical Summary Rpt ---
Demographics Preferred Language French Marital Status Unknown Sabianist Affiliation Unknown Race Unknown Ethnic Group Unknown Author Author , Organization [employer] Address Unknown Phone Unavailable Purpose Continuity of Care Document - through 2016 Immunization No patient found.
== END 2016-11-23 10:30 | disposition home or self-care (01) ==
LOC: SDC 11:02 → 2ND 11:07 → SDC 11:07 → 2ND 14:45
PROVIDERS: Surgery
PROC: 07B60ZX Excision of Left Axillary Lymphatic, Open Approach, Diagnostic (ICD-10-PCS; principal; 2016-11-22 13:15)
PROC: 0HTU0ZZ Resection of Left Breast, Open Approach (ICD-10-PCS; principal; 2016-11-22 13:15)
DX: C50.912 Malignant neoplasm of unspecified site of left female breast (principal); Z17.0 Estrogen receptor positive status [ER+]
CPT/HCPCS: G0378